=== PATIENT | male | born 1955 | race Two or more races ===

== ENCOUNTER → 2024-04-29 | Emergency (ER) | payer OTHER ==
[~2024-04-29] VITALS: Ht 180.3 cm; Wt 87.5 kg
[~2024-04-29] MED LIST: 0.9 % SODIUM CHLORIDE 1,000 ML IV ONE; AMITRIPTYLINE H10 MG; AMOX-CLAV 875-1 EACH PO; CIPROFLOXACIN IN 5 % DEXTROSE 400 MG/200 ML PIGGYBAG IV ONE; CIPROFLOXACIN IN 5 % DEXTROSE 400 MG/200 ML PIGGYBAG IV STA; COZAAR100 MG PO; KETOROLAC TROMETHAMINE 30 MG VIAL IV ONE; KETOROLAC TROMETHAMINE 30 MG VIAL IV STA; KETOROLAC TROMETHAMINE 30 MG VIAL ONE; KETOROLAC TROMETHAMINE 60 MG VIAL IM ONE; KETOROLAC TROMETHAMINE 60 MG VIAL IM STA; LIPITOR40 M1 PO; NABUMETONE750 MG PO; PEPCID AC20 MG PO; PROTONIX40 MG PO; ZYLOPRIM100 M1 PO
[2024-04-29 23:56] LABS: CALCIUM 9.8 mg/dL (8.5-10.1); CREATININE SERUM 1.26 mg/dL (0.70-1.30); GFR 57.08; POTASSIUM 3.93 mEq/L (3.5-5.1)
[2024-04-30 00:29] LABS: PH,URINE 5.5 (5.0-8.0); URINE APPEARANCE Cloudy; URINE BILIRRUBIN Negative (NEGATIVE); URINE BLOOD Moderate; URINE COLOR Yellow; URINE GLUCOSE Negative (NEGATIVE); URINE KETONE Trace (NEGATIVE); URINE LEUKOCYTE Moderate; URINE NITRATE Negative; URINE PROTEIN 30 (NEGATIVE); URINE UROBILINOGEN 0.2 E.U./dl
[2024-04-30 00:32] LABS: URINE BACTERIA 2158.2 uL (0.0-1933); URINE EPITHELIAL CELLS 2.4 uL (0.0-38.8); URINE RBC 34.8 uL (0.0-20.8); URINE WBC 1980.8 uL (0.0-23.2)
[2024-04-30 00:34] LABS: HEMATOCRIT 37.4 % (39.0-48.0); HEMOGLOBIN 13.2 g/dL (13-16.00); MEAN CELL VOLUME 94.4 fL (80.0-100.00); MEAN CORPUSCULAR HEMOGLOBIN 33.2 pg (27.00-32.0); MEAN CORPUSCULAR HGB CONC 35.2 g/dl (32.0-36.0); PLATELET COUNT 220 K/uL (150-450); RED BLOOD COUNT 3.97 M/uL (4.00-6.00); RED CELL DISTRIBUTION WIDTH 14.6 % (11.5-14.5)
[2024-04-30 07:36] LABS: HEMATOCRIT 35.7 % (39.0-48.0); HEMOGLOBIN 12.4 g/dL (13-16.00); MEAN CELL VOLUME 94.3 fL (80.0-100.00); MEAN CORPUSCULAR HEMOGLOBIN 32.7 pg (27.00-32.0); MEAN CORPUSCULAR HGB CONC 34.6 g/dl (32.0-36.0); PLATELET COUNT 206 K/uL (150-450); RED BLOOD COUNT 3.79 M/uL (4.00-6.00); RED CELL DISTRIBUTION WIDTH 14.8 % (11.5-14.5)
== END | disposition home or self-care (01) ==
LOC: ER 21:51
PROVIDERS: General Practice
DX: N39.0 Urinary tract infection, site not specified (principal); N45.1 Epididymitis; N50.812 Left testicular pain; I10 Essential (primary) hypertension
CPT/HCPCS: 36415; 76870; 96365; 96366; 96372; 99284; J0744; J1885 ×3; J7030